=== PATIENT | female | born 1980 | race Caucasian/White ===

== ENCOUNTER 2022-03-25 22:04 | Emergency (ER) | payer MEDICAID | END 2022-03-26 02:15 | LOC: JD.ED 22:04 | DX: Z53.21 Procedure and treatment not carried out due to patient leaving prior to being seen by health care provider (principal) ==

== ENCOUNTER 2023-01-21 13:39 | Emergency (ER) | payer MEDICAID ==
[2023-01-21] MEDS ORDERED: diphenhydrAMINE 50 MG/ML SDV IVPUSH ONE (13:55)
[2023-01-21 14:03] LABS: BASOPHILS ABSOLUTE AUTO 0.02 K/mm3 (0.01-0.08); BASOPHILS PERCENT AUTO 0.2 % (0.1-1.2); EOSINOPHILS ABSOLUTE AUTO 0.16 K/mm3 (0.04-0.36); EOSINOPHILS PERCENT AUTO 1.7 (0.7-5.8); HEMATOCRIT 40.9 % (34.1-44.9); HEMOGLOBIN 13.9 gm/dl (11.2-15.7); IMMATURE GRAN ABSOLUTE AUTO 0.01 K/mm3 (0.00-0.10); IMMATURE GRAN PERCENT AUTO 0.1 % (<=1.0); LYMPHOCYTES ABSOLUTE AUTO 2.53 K/mm3 (1.18-3.74); LYMPHOCYTES PERCENT AUTO 27.2 % (19.3-51.7); MEAN CORPUSCULAR HEMOGLOBIN 31.8 pg (25.6-32.2); MEAN CORPUSCULAR VOLUME 93.6 fl (79.4-94.8); MEAN PLATELET VOLUME 9.2 fl (9.4-12.3); MONOCYTES ABSOLUTE AUTO 0.36 K/mm3 (0.24-0.36); MONOCYTES PERCENT AUTO 3.9 % (4.7-12.5); NEUTROPHILS ABSOLUTE AUTO 6.21 K/mm3 (1.56-6.13); NEUTROPHILS PERCENT AUTO 66.9 % (34.0-71.1); PLATELET COUNT,PLT 392 K/mm3 (182-369); RED BLOOD CELL COUNT 4.37 M/mm3 (3.98-5.22); WHITE BLOOD CELL COUNT,WBC 9.29 K/mm3 (3.98-10.04)
[2023-01-21] MEDS ORDERED: Iopamidol 612 MG/ML 100 ML Bottle IVPUSH ONE (14:06)
[2023-01-21] MEDS ORDERED: Iopamidol 755 Mg/ML 100 ML Bottle IVPUSH ONE (14:06)
[2023-01-21] MEDS ORDERED: Sodium Chloride 0.9% 45 ML IV SCH (14:15)
[2023-01-21 14:17] LABS: INR 0.96; PROTHROMBIN TIME 10.3 SECONDS (9.7-12.0)
[2023-01-21 14:18] LABS: PTT,PARTIAL THROMBOPLSTIN TIME 28.5 SECONDS (21.7-31.4)
[2023-01-21 14:31] LABS: A/G RATIO 1.2 (1-2); ALANINE AMINOTRANSFERASE,ALT 24 U/L (14-59); ALBUMIN 3.9 g/dl (3.4-5.0); ALKALINE PHOSPHATASE 55 U/L (46-116); ANION GAP 14.3 (5-15); ASPARTATE AMNIOTRANSFERASE,AST 13 U/L (15-37); BILIRUBIN TOTAL 0.4 mg/dL (0.2-1.0); BLOOD UREA NITROGEN,BUN 9 mg/dL (7-18); BUN/CREATININE RATIO 7.5 (14-18); CALCIUM 8.8 mg/dL (8.5-10.1); CARBON DIOXIDE,CO2 28 mEq/L (21-32); CHLORIDE,CL 103 mEq/L (98-107); CREATININE 1.2 mg/dL (0.55-1.02); ESTIMATED GFR 59 mL/min (>60); GLUCOSE RANDOM 113 mg/dL (70-99); POTASSIUM,K 4.3 mEq/L (3.5-5.1); PROTEIN TOTAL,TP 7.3 g/dl (6.4-8.2); SODIUM,NA 141 mEq/L (136-145); TROPONIN I HIGH SENSITIVITY < 4 pg/mL (<=51)
== END 2023-01-21 15:40 | disposition home or self-care (01) ==
LOC: JD.ED 13:39
DX: G51.0 Bell's palsy (principal)
CPT/HCPCS: 36415; 70450; 70496; 70498; 80053; 82947; 84484; 85025; 85610; 85730; 93005; 96374; 99284; J1200; J3490; Q9967; 93010

== ENCOUNTER 2023-03-21 16:20 | Emergency (ER) | payer MEDICAID | END 2023-03-21 18:20 | disposition home or self-care (01) | LOC: JD.ED 16:20 | DX: M79.671 Pain in right foot (principal); Z88.5 Allergy status to narcotic agent; Z88.6 Allergy status to analgesic agent; Z88.1 Allergy status to other antibiotic agents; Z91.030 Bee allergy status; Z91.041 Radiographic dye allergy status | CPT/HCPCS: 73620-26-RT; 73620-RT; 99282; 99284 ==

== ENCOUNTER 2024-03-21 17:28 | Emergency (ER) | payer MEDICAID | END 2024-03-21 19:00 | disposition left against medical advice (07) | LOC: JD.ED 17:28 | DX: Z53.21 Procedure and treatment not carried out due to patient leaving prior to being seen by health care provider (principal) ==

== ENCOUNTER 2024-03-23 22:43 | Emergency (ER) | payer MEDICAID ==
[2024-03-23] MEDS: Famotidine 20 MG Tab PO ONE (23:36)
[2024-03-23] MEDS: predniSONE 20 MG Tab PO ONE (23:36)
== END 2024-03-23 23:39 | disposition home or self-care (01) ==
LOC: JD.ED 22:43
DX: T78.40XA Allergy, unspecified, initial encounter (principal); F17.210 Nicotine dependence, cigarettes, uncomplicated; J45.909 Unspecified asthma, uncomplicated; Z79.899 Other long term (current) drug therapy; Z88.1 Allergy status to other antibiotic agents; Z88.8 Allergy status to other drugs, medicaments and biological substances; Z88.5 Allergy status to narcotic agent; Z91.041 Radiographic dye allergy status; Z91.030 Bee allergy status
CPT/HCPCS: 99282; A9270; J7512

== ENCOUNTER 2024-09-04 14:53 | Emergency (ER) | payer MEDICAID ==
[2024-09-04 15:51] LABS: BASOPHILS PERCENT AUTO 0.3 % (0.0-1.0); EOSINOPHILS ABSOLUTE AUTO 0.1 K/mm3 (0.0-0.4); EOSINOPHILS PERCENT AUTO 0.8 % (0.0-6.0); HEMATOCRIT 38.3 % (37.0-47.0); HEMOGLOBIN 13.2 gm/dl (12.0-16.0); IMMATURE GRAN ABSOLUTE AUTO 0.02 K/mm3 (0.00-0.05); IMMATURE GRAN PERCENT AUTO 0.3 % (0.0-0.4); LYMPHOCYTES ABSOLUTE AUTO 3.1 K/mm3 (1.0-4.8); LYMPHOCYTES PERCENT AUTO 41.7 % (24.0-44.0); MEAN CORPUSCULAR HGB CONC 34.5 g/dl (32.0-36.0); MONOCYTES ABSOLUTE AUTO 0.4 K/mm3 (0.0-0.8); MONOCYTES PERCENT AUTO 4.9 % (0.0-8.0); NEUTROPHILS ABSOLUTE AUTO 3.8 K/mm3 (1.8-7.7); PLATELET COUNT,PLT 330 K/mm3 (150-400); WHITE BLOOD CELL COUNT,WBC 7.36 K/mm3 (3.9-11.3)
[2024-09-04 16:31] LABS: A/G RATIO 1.2 (1-2); ALBUMIN 3.9 g/dl (3.4-5.0); BILIRUBIN TOTAL 0.4 mg/dL (0.2-1.0); EST CRCL DRUG DOSING (CG) 61.24 mL/min; MAGNESIUM 1.8 mg/dL (1.8-2.4); PROTEIN TOTAL,TP 7.3 g/dl (6.4-8.2)
[2024-09-04] MEDS: droPERidol 2.5 MG/ML SDV IV ONE (16:52)
[2024-09-04] MEDS: Sodium Chloride 0.9% 1,000 ML IV ONE (16:52)
[2024-09-04] MEDS: Sodium Chloride 0.9% 10 ML Syringe FLUSH PRN (16:52)
[2024-09-04] MEDS: diphenhydrAMINE 50 MG/ML SDV IVPUSH ONE (16:52)
== END 2024-09-04 18:15 | disposition home or self-care (01) ==
LOC: JD.ED 14:53
DX: R56.9 Unspecified convulsions (principal); R51.9 Headache, unspecified; J45.909 Unspecified asthma, uncomplicated; Z88.8 Allergy status to other drugs, medicaments and biological substances; Z88.5 Allergy status to narcotic agent; Z91.030 Bee allergy status; Z79.899 Other long term (current) drug therapy; Z79.51 Long term (current) use of inhaled steroids; Z79.891 Long term (current) use of opiate analgesic; Z90.49 Acquired absence of other specified parts of digestive tract; Z90.710 Acquired absence of both cervix and uterus
CPT/HCPCS: 36415; 70450; 80053; 80177; 82947; 83735; 84703; 85025; 93005; 96361; 96374; 96375; 99285; J1200; J1790; J7030; 93010; 99284

== ENCOUNTER 2025-02-07 06:35 | Day surgery (SDC) | payer MEDICAID ==
[~2025-02-07 06:35] MED LIST: Sodium Chloride 0.9% 10 ML Syringe FLUSH PRN; Sodium Chloride 0.9% 10 ML Syringe FLUSH SCH
[2025-02-07] MEDS ORDERED: Lidocaine 1% 4 ML ONE (06:44)
[2025-02-07] MEDS ORDERED: Propofol 200 MG/20 ML SDV ONE ×2 (06:44→07:29)
[2025-02-07] MEDS ORDERED: Midazolam 1 MG/ML 2 ML SDV ONE (06:44)
[2025-02-07] MEDS: Lactated Ringers 1,000 ML IV SCH (06:55)
[2025-02-07] MEDS ORDERED: Ondansetron 4 MG/2 ML SDV ONE (07:08)
[2025-02-07] MEDS ORDERED: fentaNYL 100 MCG/2 ML SDV ONE (07:33)
== END 2025-02-07 09:10 | disposition home or self-care (01) ==
LOC: JD.SDS 06:35
PROVIDERS: ATTEND Surgery
DX: K62.5 Hemorrhage of anus and rectum (principal); F17.210 Nicotine dependence, cigarettes, uncomplicated; Z80.0 Family history of malignant neoplasm of digestive organs; Z88.8 Allergy status to other drugs, medicaments and biological substances; Z91.041 Radiographic dye allergy status; Z91.030 Bee allergy status; Z91.018 Allergy to other foods; Z79.899 Other long term (current) drug therapy
CPT/HCPCS: 45378; J2003; J2250; J2405; J2704; J3010; J7120; 00811

== ENCOUNTER 2025-02-28 11:52 | Emergency (ER) | payer MEDICAID ==
[2025-02-28] MEDS: methylPREDNISolone Sodium Succinate 125 MG/2 ML SDV IVPUSH ONE (12:48)
[2025-02-28] MEDS: diphenhydrAMINE 50 MG/ML SDV IVPUSH ONE (12:48)
== END 2025-02-28 14:10 | disposition home or self-care (01) ==
LOC: JD.ED 11:52
DX: T63.461A Toxic effect of venom of wasps, accidental (unintentional), initial encounter (principal); J45.909 Unspecified asthma, uncomplicated; Z90.49 Acquired absence of other specified parts of digestive tract; Z79.899 Other long term (current) drug therapy; Z91.030 Bee allergy status; Z88.5 Allergy status to narcotic agent; Z88.6 Allergy status to analgesic agent; Z91.041 Radiographic dye allergy status; Z88.8 Allergy status to other drugs, medicaments and biological substances
CPT/HCPCS: 96374; 96375; 99283; A9270; J1200; J1308; J2919; J7030